=== PATIENT | male | born 2000 | race Caucasian/White ===

== ENCOUNTER 2023-10-24 10:45 | Emergency (ER) | payer OTHER, SELFPAY ==
[2023-10-24 10:53] VITALS: BP 115/67; PULSE 63; RESP 16; TEMP 36.5; O2SAT 100
[2023-10-24] MEDS: Lidocaine/Epinephri/Tetracaine Topical Gel 3 ML TP (11:07)
--- NOTE | 2023-10-24 11:11 | W.ED.GENAD ---
HPI General Date/Time Provider Initiated Documentation: 10/24/23 11:00. Limitations to Documentation: no limitations. HPI Narrative: 23-year-old gentleman without significant past medical history presents for evaluation of facial laceration. Laceration occurred just prior to arrival. The patient was skiing racing when a pole came back and hit him in the chin. He reports pain and bleeding to that area. Did not lose consciousness. Denies any other injuries. He denies any dental trauma or difficulty using his jaw. Related Data Home Medications Medication Instructions Recorded Confirmed Unknown [No Known Home Meds] 10/24/23 10/24/23 Allergies Allergy/AdvReac Type Severity Reaction Status Date / Time penicillin Allergy Intermediate hives Uncoded 10/24/23 11:02 General Stated Complaint: Laceration LUZ: 3 Exam Narrative Exam Narrative: Review of Systems: All systems reviewed & are unremarkable except as noted in HPI and below Well-developed, no acute distress 2 cm laceration to the right lateral chin, well-approximated, no foreign body, no malocclusion, no dental trauma PERRL, normal conjunctiva RRR Unlabored respiratory effort Nondistended abdomen Extremities w/o deformity, no cyanosis, no edema No rashes or lesions. no focal neurologic deficits Appropriate mood and affect Course Vital Signs Vital signs: Vital Signs Temperature 36.5 C 10/24/23 10:53 Pulse 63 10/24/23 10:53 Respiratory Rate 16 10/24/23 10:53 Blood Pressure 115/67 10/24/23 10:53 Pulse Oximetry 100 10/24/23 10:53 Temperature 36.5 C 10/24/23 10:53 Temperature Source Temporal Artery Scan 10/24/23 10:53 Pulse 63 10/24/23 10:53 Respiratory Rate 16 10/24/23 10:53 Respiratory Effort Normal, Non-Labored 10/24/23 10:56 Blood Pressure 115/67 10/24/23 10:53 Blood Pressure Position Supine 10/24/23 10:53 Pulse Oximetry 100 10/24/23 10:53 Oxygen Delivery Method Room Air 10/24/23 10:53 Oxygen Flow Rate 0 10/24/23 10:53 Pain Level 0 10/24/23 11:08 Procedures Laceration Laceration 1: Site: face (chin) Size (cm): 2 Description: linear Local Anesthetic: other anesthetic (LET) Pre-repair: wound explored, irrigated extensively and deep structures intact Skin layer closed with: other (chromic gut) Size (cm): 5-0 Number of sutures: 7 Medical Decision Making Emergent evaluation of the facial laceration. Simple laceration, no signs of other trauma. Doubt intracranial process. I do not feel that head CT is indicated at this time based on [place] [facility] rule. Tetanus up-to-date. No indication for antibiotics. Will apply topical analgesia and repair laceration. Laceration repaired without complication. Parent aware to clean laceration with soap and water, should otherwise keep dry. Apply neosporin twice a day. Sutures should dissolve, need to be removed if have not dissolved. Should return for swelling/pain to area, redness to skin, fever, drainage, or any other acute issue requiring immediate attention. Quality:SDOH Health Related Social Needs: No Data to Display PFSH All Active Problems (Updated 10/24/23 @ 11:52 by Zeny Montano MD) Facial laceration (Acute) Social History Smoking/Tobacco Use Status: Never Smoking risk assessment performed?: Yes Alcohol Intake: never Drug use: Never Substance use type: does not use Discharge Plan Disposition Patient Disposition: Home Condition: Stable Discharge Details Clinical Impression: Facial laceration Primary Care Provider: Casandra,Local ED Provider: Zeny Montano Home Meds and New Rx's Prescriptions: No Action No Known Home Meds Discharge Instructions Instructions: Facial Laceration (ED) Additional Instructions: You have 7 stitches in your chin. You may notice some swelling and bruising. You can apply ice pack to the area to help with this. Motrin or Tylenol for pain. The stitches will dissolve on their own in about 7 to 10 days and do not need to be removed. You can use topical antibiotic ointment twice daily. Keep covered during sports or outdoor activities.
== END 2023-10-24 11:58 | disposition home or self-care (01) ==
PROVIDERS: Emergency Provider Emergency Medicine
DX: S01.81XA Laceration without foreign body of other part of head, initial encounter (principal); W22.8XXA Striking against or struck by other objects, initial encounter
CPT/HCPCS: 12011